=== PATIENT | female | born 1955 | race Two or more races ===

== ENCOUNTER 2017-06-22 16:21 | Emergency (ER) | payer MEDICARE, MEDICAID ==
[~2017-06-22] VITALS: Ht 162.6 cm; Wt 64.0 kg
[~2017-06-22 16:21] MED LIST: AMLO2.5T45 PO; HYDR25TA PO; VALS160T2 PO
[2017-06-22] MEDS ORDERED: ONDANSETRON 4MG ODT PO ONE (17:45)
[2017-06-22] MEDS ORDERED: MORPHINE SULFATE 10 MG/ML CPJ IM ONE (17:45)
[2017-06-22 19:00] VITALS: BP 135/60
== END 2017-06-22 19:01 | disposition home or self-care (01) ==
LOC: ER 17:12
DX: M54.30 Sciatica, unspecified side (principal); I10 Essential (primary) hypertension; F17.200 Nicotine dependence, unspecified, uncomplicated; R20.0 Anesthesia of skin; Z86.73 Personal history of transient ischemic attack (TIA), and cerebral infarction without residual deficits
CPT/HCPCS: 96372; 99283; J2270; Q0162